=== PATIENT | male | born 1990 | race Caucasian/White ===

== ENCOUNTER 2019-06-12 22:56 | Emergency (ER) | payer OTHER ==
[~2019-06-12] VITALS: Ht 182.9 cm; Wt 108.9 kg
[2019-06-12 23:10] VITALS: BP 167/99
[2019-06-12] MEDS ORDERED: DIPH25CA58 PO (23:20)
[2019-06-13] MEDS ORDERED: CLIN150C14 PO (00:37)
--- NOTE | 2019-06-13 00:40 | PHYS DOC ---
Past Medical History Past Medical History: No Pertinent History (OFE MARTI APRN) Past Surgical History: Other Additional Past Surgical Histo: WISDOM TEETH (OFE MARTI APRN) Alcohol Use: None Drug Use: None (OFE MARTI APRN) Adult General Chief Complaint Chief Complaint: ABSCESS HPI HPI Patient is a 28 year old male who presents to the emergency department with complaints of a swollen tender area in his perineal area for the last week that drained bloody pus yesterday and today. He currently rates his pain a 2 out of 10 on the pain scale. He states that the pain increases with pressure being applied, the pain was relieved after the site drained a bloody pus. ROS Patient denies any fever, abdominal pain, nausea, vomiting, diarrhea, testicular swelling, scrotal pain, dysuria, hematuria, back pain, or abnormal penile discharge. He denies any other rashes or abscesses. All other ROS is neg unless otherwise noted in HPI. (OFE MARTI APRN) Review of Systems Review of Systems See Above (OFE MARTI APRN) Allergies Allergies Allergies Coded Allergies Type Severity Reaction Last Updated Verified amoxicillin Allergy Unknown HIVES 06/12/19 Yes (UNIQUE GATES DO) Physical Exam Physical Exam See Above Constitutional: Well developed, well nourished, no acute distress, non-toxic appearance. [] HENT: Normocephalic, atraumatic, bilateral external ears normal, nose normal. [] Eyes: PERRLA, EOMI, conjunctiva normal, no discharge. [] Neck: Normal range of motion, no stridor. [] Lungs & Thorax: Respirations even and unlabored, no retractions, no respiratory distress Abdomen: soft, no tenderness, no masses, no pulsatile masses. [] : No scrotal erythema or edema, no testicular pain to palpation, urethral meatus appears normal. Skin: Warm, dry, no rash; perineal area is indurated with no fluctuance, small open area that drains scant bloody fluid when pressure applied noted Extremities: No cyanosis, no clubbing, ROM intact, no edema. [] Neurologic: Alert and oriented X 3, no focal deficits noted. [] Psychologic: Affect normal, judgement normal, mood normal. [] (OFE MARTI APRN) Current Patient Data Vital Signs Vital Signs Date Time Temp Pulse Resp B/P (MAP) Pulse Ox O2 Delivery O2 Flow Rate FiO2 06/12/19 23:10 98.4 104 20 167/99 (121) 97 Room Air 98.4 (UNIQUE GATES DO) EKG EKG [] (OFE MARTI APRN) Radiology/Procedures Radiology/Procedures [] (OFE MARTI APRN) Course & Med Decision Making Course & Med Decision Making Pertinent Labs and Imaging studies reviewed. (See chart for details) dx: Perineal abscess The area drained bloody pus prior to arrival, no evidence of scrotal cellulitis or abscess. Perineal area is indurated without fluctuance. Prescription written for clindamycin. Tylenol or ibuprofen prn. Pt encouraged to follow up with PCP if sx persist, return to ER if sx worsen. Patient verbalized an understanding of home care, medications, follow-up, and return to ED instructions and was in agreement with the plan of care. [] (OFE MARTI APRN) Dragon Disclaimer Dragon Disclaimer This electronic medical record was generated, in whole or in part, using a voice recognition dictation system. (OFE MARTI APRN) Departure Departure Impression: Primary Impression: Perineal abscess Disposition: 01 HOME, SELF-CARE Condition: STABLE Referrals: NO PCP (PCP) Patient Instructions: Abscess, Perineal Additional Instructions: Fill the prescription and use as directed. Apply warm moist packs or soak in warm tub every 2-3 hours tomorrow and then as needed. Tylenol or ibuprofen as needed for pain. Follow up with your primary care doctor if symptoms persist, return to the ER if symptoms worsen. Scripts Clindamycin Hcl (CLINDAMYCIN HCL) 150 Mg Capsule 450 MG PO TID for 7 Days, #63 CAP 0 Refills Prov: OFE MARTI APRN 06/13/19 Attending Signature Attending Signature I have reviewed the PA/REWINDER OPERATOR HELPER's note and plan of care. I was available for consultation as needed during the patient's visit in the emergency department. I agree with the clinical impression, plan, and disposition. (UNIQUE GATES DO) OFE MARTI APRN Jun 13, 2019 00:40 UNIQUE GATES DO Jun 19, 2019 13:40
== END 2019-06-13 01:08 | disposition home or self-care (01) ==
LOC: ER 22:56
DX: L02.215 Cutaneous abscess of perineum (principal); Z88.1 Allergy status to other antibiotic agents
CPT/HCPCS: 99283